=== PATIENT | male | born 1970 | race Caucasian/White ===

== ENCOUNTER 2021-02-04 15:57 | Inpatient (IN) | payer BC ==
[~2021-02-04] VITALS: Ht 182.9 cm; Wt 95.3 kg
[2021-02-04 16:43] LABS: BASO # 0.04 (0.02-0.10); EOS # 0.01 (0.04-0.40); EOS % 0.1 % (0.0-4.0); HEMATOCRIT 52.4 % (42.0-52.0); HEMOGLOBIN 17.8 g/dL (13.5-18.0); LYMPH# 0.94 (1.50-4.00); MEAN CELL VOLUME 83 fl (78-100); MEAN CORPUSCULAR HEMOGLOBIN 28 pg (27-31); MEAN CORPUSCULAR HGB CONC 34 g/dL (33-37); MEAN PLATELET VOLUME 10.1 fl (7.4-10.4); MONO # 1.01 (0.20-0.80); NEU # 16.01 (1.40-6.50); PLATELET COUNT 212 K/mm3 (130-400); RED BLOOD COUNT 6.32 M/mm3 (4.20-5.60); RED CELL DISTRIBUTION WIDTH 12.7 % (11.5-14.5); WHITE BLOOD COUNT 18.1 K/mm3 (4.8-10.8)
[2021-02-04 16:54] LABS: ALBUMIN 4.1 g/dL (3.5-5.0); POTASSIUM 4.2 mmol/L (3.5-5.1)
[2021-02-04 16:54] LABS: URINE APPEARANCE HAZY; URINE COLOR YELLOW
[2021-02-04 16:55] LABS: URINE BILIRUBIN 1+ (NEGATIVE); URINE BLOOD 50 ery/uL (NEGATIVE); URINE KETONE 3+ (NEGATIVE); URINE LEUKOCYTE ESTERASE TRACE (NEGATIVE); URINE MUCUS PRESENT (NOT PRESENT); URINE NITRATE NEGATIVE (NEGATIVE); URINE PROTEIN(semi-quant) 2+ mg/dL (NEGATIVE); URINE UROBILINOGEN NORMAL (NORMAL)
[2021-02-04 16:55] LABS: CALCIUM 10.4 mg/dL (8.3-10.5)
[2021-02-04 16:56] LABS: TOTAL PROTEIN 7.9 g/dL (6.4-8.3)
[2021-02-04 16:58] LABS: TOTAL BILIRUBIN 4.1 mg/dL (0.2-1.2)
[2021-02-04] MEDS ORDERED: SINGULAIR 110 MG/TAB PO (17:06)
[2021-02-04 19:30] VITALS: BP 176/116
--- NOTE | 2021-02-04 19:30 | NUR ---
Pt orientated. States he is comfortable, 3/10. Skin is warm and dry. No rashes or break down noted. Abd is distended but soft. Bowel sounds heard.IV in Rt hand patent. Pt's left to get pt's CPAP machine which he uses at night.
[2021-02-04 22:12] VITALS: BP 164/100
--- NOTE | 2021-02-04 23:15 | NUR ---
Pt c/o 12/20. Fentanyl 50mcg IVP given. Pt alert and orientated.
[2021-02-05 02:17] VITALS: BP 148/94
[2021-02-05 06:00] VITALS: BP 151/87
--- NOTE | 2021-02-05 06:23 | NUR ---
UPON ENTERING ROOM PT APPEARS ASLEEP, RESP EASY AND UNLABORED. PT ON CPAP. PT AWAKENS WITH VITAL SIGNS BEING TAKEN. NO C/O PAIN.
--- NOTE | 2021-02-05 07:00 | NUR ---
REPORT GIVEN TO EVANS Rose RN
[2021-02-05 07:41] LABS: BASO # 0.07 (0.02-0.10); EOS # 0.07 (0.04-0.40); EOS % 0.5 % (0.0-4.0); HEMATOCRIT 47.2 % (42.0-52.0); HEMOGLOBIN 16.1 g/dL (13.5-18.0); LYMPH# 1.05 (1.50-4.00); MEAN CELL VOLUME 84 fl (78-100); MEAN CORPUSCULAR HEMOGLOBIN 29 pg (27-31); MEAN CORPUSCULAR HGB CONC 34 g/dL (33-37); MEAN PLATELET VOLUME 11.1 fl (7.4-10.4); MONO # 1.02 (0.20-0.80); NEU # 11.26 (1.40-6.50); PLATELET COUNT 182 K/mm3 (130-400); RED BLOOD COUNT 5.62 M/mm3 (4.20-5.60); RED CELL DISTRIBUTION WIDTH 12.8 % (11.5-14.5); WHITE BLOOD COUNT 13.5 K/mm3 (4.8-10.8)
[2021-02-05 07:48] LABS: ALBUMIN 3.6 g/dL (3.5-5.0); POTASSIUM 3.6 mmol/L (3.5-5.1)
[2021-02-05 07:49] LABS: CALCIUM 9.2 mg/dL (8.3-10.5)
[2021-02-05 07:51] LABS: TOTAL PROTEIN 6.9 g/dL (6.4-8.3)
[2021-02-05 07:52] LABS: TOTAL BILIRUBIN 3.3 mg/dL (0.2-1.2)
--- NOTE | 2021-02-05 08:57 | NUR ---
Patient resting in bed. Reports pain is a 3 out of 10 on a numeric pain scale. States, "It's much better than it was." Bed in lowest and locked position. Call light within reach. IV infusion running at this time.
[2021-02-05 10:52] VITALS: BP 146/88
[2021-02-05 14:23] VITALS: BP 157/89
[2021-02-05 17:55] VITALS: BP 154/83
--- NOTE | 2021-02-05 19:10 | NUR ---
Report received from Rina MONTANO. Patient resting in bed. Drowsy but oriented x4. Rates pain to middleback and epigastric region a 10/20. States "I think I over did it today". States passing gas. Denies dysuria. IVF infusing NS at 150 ML/HR. Site patent to L hand. Would like Toradol when he can have. Denies questions, wants or needs. Call light in reach.
[2021-02-05 21:53] VITALS: BP 130/66
[2021-02-06 01:26] VITALS: BP 123/73
--- NOTE | 2021-02-06 01:40 | NUR ---
Up to BR with SBA. Voids 400 ML of dark orange/reddish colored urine. Having pain to lower back and epigastric region 01/20. Somewhat nauseous. Zofran and IV Fentanyl 50 MCG given at this time. Congested.
--- NOTE | 2021-02-06 02:57 | NUR ---
Calls and states that the pain woke him up again. "the back pain is better, it is more in the front now". Rates 09/20. Toradol 30 MG IV given at this time.
--- NOTE | 2021-02-06 05:30 | NUR ---
INFRASTRUCTURE SOLUTIONS ARCHITECT's in room to obtain vital signs. Patient sleeping with CPAP in place. No signs of distress at this time. IVF infusing NS at 150 ML/HR. VSS.
[2021-02-06 05:44] VITALS: BP 127/79
[2021-02-06 06:59] LABS: BASO # 0.07 (0.02-0.10); EOS # 0.15 (0.04-0.40); EOS % 1.7 % (0.0-4.0); HEMATOCRIT 40.4 % (42.0-52.0); HEMOGLOBIN 13.5 g/dL (13.5-18.0); LYMPH# 1.09 (1.50-4.00); MEAN CELL VOLUME 85 fl (78-100); MEAN CORPUSCULAR HEMOGLOBIN 29 pg (27-31); MEAN CORPUSCULAR HGB CONC 33 g/dL (33-37); MEAN PLATELET VOLUME 10.4 fl (7.4-10.4); MONO # 0.85 (0.20-0.80); PLATELET COUNT 179 K/mm3 (130-400); RED BLOOD COUNT 4.73 M/mm3 (4.20-5.60); RED CELL DISTRIBUTION WIDTH 12.8 % (11.5-14.5); WHITE BLOOD COUNT 8.9 K/mm3 (4.8-10.8)
[2021-02-06 07:02] LABS: ALBUMIN 2.9 g/dL (3.5-5.0)
[2021-02-06 07:03] LABS: POTASSIUM 3.6 mmol/L (3.5-5.1)
[2021-02-06 07:04] LABS: CALCIUM 8.6 mg/dL (8.3-10.5)
[2021-02-06 07:05] LABS: TOTAL PROTEIN 5.6 g/dL (6.4-8.3)
[2021-02-06 07:07] LABS: TOTAL BILIRUBIN 2.5 mg/dL (0.2-1.2)
--- NOTE | 2021-02-06 07:12 | NUR ---
Report to Sun MONTANO.
[2021-02-06 10:20] VITALS: BP 158/89
--- NOTE | 2021-02-06 11:24 | NUR ---
JC HERR APRN IN WITH PATIENT AT THIS TIME.
[2021-02-06 14:05] VITALS: BP 149/87
[2021-02-06 17:25] VITALS: BP 165/95
--- NOTE | 2021-02-06 19:00 | NUR ---
Report received from Nancy MONTANO.
--- NOTE | 2021-02-06 20:19 | NUR ---
Patient requests toradol for burning back pain and given. Reports pain decreased after med from 7 to 06/22.
[2021-02-06 21:57] VITALS: BP 154/84
--- NOTE | 2021-02-07 01:27 | NUR ---
Patient has been resting quietly in bed until this time. Reports abdominal soreness throughout 5/10 on pain scale and fentanyl 50 mcg gm given SIV.
[2021-02-07 01:40] VITALS: BP 145/83
--- NOTE | 2021-02-07 03:00 | NUR ---
Patient rests in bed with eyes closed. Respirations with ease.
[2021-02-07 05:30] VITALS: BP 143/84
--- NOTE | 2021-02-07 05:54 | NUR ---
Patient awake and up to the bathroom to void and back to bed.
[2021-02-07 09:07] LABS: BASO # 0.05 (0.02-0.10); EOS # 0.06 (0.04-0.40); EOS % 0.6 % (0.0-4.0); HEMATOCRIT 39.9 % (42.0-52.0); HEMOGLOBIN 13.7 g/dL (13.5-18.0); LYMPH# 0.91 (1.50-4.00); MEAN CELL VOLUME 82 fl (78-100); MEAN CORPUSCULAR HEMOGLOBIN 28 pg (27-31); MEAN CORPUSCULAR HGB CONC 34 g/dL (33-37); MEAN PLATELET VOLUME 10.5 fl (7.4-10.4); MONO # 0.86 (0.20-0.80); NEU # 7.91 (1.40-6.50); PLATELET COUNT 190 K/mm3 (130-400); RED BLOOD COUNT 4.84 M/mm3 (4.20-5.60); RED CELL DISTRIBUTION WIDTH 12.6 % (11.5-14.5); WHITE BLOOD COUNT 9.8 K/mm3 (4.8-10.8)
[2021-02-07 09:12] LABS: ALBUMIN 3.1 g/dL (3.5-5.0); POTASSIUM 3.6 mmol/L (3.5-5.1)
[2021-02-07 09:13] LABS: CALCIUM 8.9 mg/dL (8.3-10.5)
[2021-02-07 09:15] LABS: TOTAL PROTEIN 6.2 g/dL (6.4-8.3)
[2021-02-07 09:17] LABS: TOTAL BILIRUBIN 2.3 mg/dL (0.2-1.2)
[2021-02-07 09:20] VITALS: BP 158/93
[2021-02-07 14:15] VITALS: BP 154/90
[2021-02-07 17:20] VITALS: BP 159/86
[2021-02-07] MEDS ORDERED: MAGNESIUM400 M1 PO (18:26)
[2021-02-07] MEDS ORDERED: [UNRECOGNIZED DRUG - OTHER] PO (18:31)
[2021-02-07] MEDS ORDERED: VITAMIN K2100 MCG PO (18:31)
[2021-02-07] MEDS ORDERED: VITAMIN D350 MCG PO (18:35)
[2021-02-07] MEDS ORDERED: MULTI-VITAMIN1 EACH PO (18:35)
[2021-02-07] MEDS ORDERED: ACTIVE-Q200 MG PO (18:37)
[2021-02-07] MEDS ORDERED: ALLEGRA ALLERGY60 MG PO (18:38)
[2021-02-07] MEDS ORDERED: PROBIOTIC1 EACH PO (18:38)
[2021-02-07] MEDS ORDERED: ZINC50 M4 PO (18:39)
[2021-02-07] MEDS ORDERED: LEADER C 250 MG1 TAB PO (18:39)
--- NOTE | 2021-02-07 19:00 | NUR ---
Report received from Nancy MONTANO.
--- NOTE | 2021-02-07 21:00 | NUR ---
Patient rests in bed. Reports pain controlled at this time and rates abdomin and back soreness 2/10. Denies need for pain med. States not passing gas this evening but did this morning. Bowel sounds are active x 4, abdomin distended but soft.
[2021-02-07 22:00] VITALS: BP 150/85
[2021-02-08] VITALS (7 sets, daily range): BP systolic 112–155; BP diastolic 74–105
--- NOTE | 2021-02-08 06:35 | NUR ---
Patient has been resting with eyes closed. Up to the bathroom frequently to void during the night then rests back in bed.
--- NOTE | 2021-02-08 06:41 | NUR ---
Patient reports he rested better this noc.
[2021-02-08 07:20] LABS: BASO # 0.04 (0.02-0.10); EOS # 0.07 (0.04-0.40); EOS % 0.6 % (0.0-4.0); HEMATOCRIT 42.2 % (42.0-52.0); LYMPH# 1.06 (1.50-4.00); MEAN CELL VOLUME 81 fl (78-100); MEAN CORPUSCULAR HEMOGLOBIN 29 pg (27-31); MEAN CORPUSCULAR HGB CONC 36 g/dL (33-37); MEAN PLATELET VOLUME 10.5 fl (7.4-10.4); MONO # 0.99 (0.20-0.80); PLATELET COUNT 209 K/mm3 (130-400); RED BLOOD COUNT 5.19 M/mm3 (4.20-5.60); RED CELL DISTRIBUTION WIDTH 12.5 % (11.5-14.5); WHITE BLOOD COUNT 11.2 K/mm3 (4.8-10.8)
[2021-02-08 08:59] LABS: POTASSIUM 3.4 mmol/L (3.5-5.1)
[2021-02-08 09:00] LABS: CALCIUM 9.2 mg/dL (8.3-10.5)
[2021-02-08 09:38] LABS: ALBUMIN 3.2 g/dL (3.5-5.0)
[2021-02-08 09:41] LABS: TOTAL PROTEIN 6.4 g/dL (6.4-8.3)
[2021-02-08 09:43] LABS: TOTAL BILIRUBIN 2.1 mg/dL (0.2-1.2)
--- NOTE | 2021-02-08 19:30 | NUR ---
Report received from Sun MONTANO. Patient resting in recliner. States he just got back and that he had a BM. Noted Medium loose brown BM in toilet along with 450 of orange colored urine. Denies pain or nausea, Some tenderness with palpation to upper quads of abdomen but states "it's nothing like before" and that he is feeling "much better" now that his bowels have moved. Tolerating a clear liquid diet well. Assessment completed. CPAP water resevoir filled. Denies further wants or needs at this time.
--- NOTE | 2021-02-09 01:02 | NUR ---
New bag of IVF hung, NS to run at 75 ML/HR. Site patent. Patient sleeping with CPAP in place. No signs of pain or distress.
[2021-02-09 01:11] VITALS: BP 127/79
--- NOTE | 2021-02-09 04:34 | NUR ---
Awake up to BR, voids 450 ML of orange colored urine. Passing gas, no further BM. Denies pain. States stomach sore from coughing but no pain like before. States he has rested well.
[2021-02-09 05:35] VITALS: BP 132/94
--- NOTE | 2021-02-09 06:22 | NUR ---
Continues to rest well without pain. IVF continue at 75 ML/HR. CPAP in place.
[2021-02-09 06:42] LABS: BASO # 0.06 (0.02-0.10); EOS # 0.07 (0.04-0.40); EOS % 0.7 % (0.0-4.0); HEMATOCRIT 45.2 % (42.0-52.0); HEMOGLOBIN 15.5 g/dL (13.5-18.0); LYMPH# 0.92 (1.50-4.00); MEAN CELL VOLUME 82 fl (78-100); MEAN CORPUSCULAR HEMOGLOBIN 28 pg (27-31); MEAN CORPUSCULAR HGB CONC 34 g/dL (33-37); MEAN PLATELET VOLUME 10.6 fl (7.4-10.4); MONO # 0.96 (0.20-0.80); NEU # 8.11 (1.40-6.50); PLATELET COUNT 238 K/mm3 (130-400); RED BLOOD COUNT 5.49 M/mm3 (4.20-5.60); RED CELL DISTRIBUTION WIDTH 12.5 % (11.5-14.5); WHITE BLOOD COUNT 10.2 K/mm3 (4.8-10.8)
[2021-02-09 06:57] LABS: ALBUMIN 3.1 g/dL (3.5-5.0)
[2021-02-09 06:58] LABS: POTASSIUM 3.5 mmol/L (3.5-5.1)
[2021-02-09 06:59] LABS: CALCIUM 9.2 mg/dL (8.3-10.5)
[2021-02-09 07:00] LABS: TOTAL PROTEIN 6.4 g/dL (6.4-8.3)
[2021-02-09 07:02] LABS: TOTAL BILIRUBIN 1.8 mg/dL (0.2-1.2)
--- NOTE | 2021-02-09 07:07 | NUR ---
Report to Sun MONTANO.
--- NOTE | 2021-02-09 08:00 | NUR ---
PATIENT LYING IN BED. IN ROOM. PATIENT REPORTS FEELING BETTER THIS MORNING. PATIENT'S COLOR IMPROVED. NO JAUNDICE NOTED. PATIENT'S SCLERA WHITE. REPORTS NIGHT WENT WELL. DID NOT REQUIRE ANY PAIN MEDICATIONS. PATIENT REPORTS PAIN 1/10 IN BACK. REPORTS THAT WHEN LAYING FLAT ON BACK HAS SOME DISCOMFORT IN ABDOMEN BUT IS MOSTLY RESOLVED WHEN ON ON SIDE. PATIENT'S BOWELS MOVING. BOWEL SOUNDS AUDIBLE IN ALL QUADRANTS. ABD LESS DISTENDED THIS MORNING. SOFT UPON PALPATION. PATIENT REPORTS THAT HE IS CONTINUING TO HAVE COUGH ESPECIALLY AT NIGHT DUE TO DRAINAGE FROM SINUSES. DENIES SHORTNESS OF BREATH OR DIFFICULTIES BREATHING. STATES "IN FACT I FEEL LIKE THIS MORNING IS THE FIRST TIME I FEEL LIKE I CAN TAKE A FULL BIG DEEEP BREATH IN WITHOUT ANY DISCOMFORT. PATIENT'S CALL LUCA FRANCO.
[2021-02-09 10:39] VITALS: BP 128/86
[2021-02-09 14:29] VITALS: BP 125/87
[2021-02-09 17:20] VITALS: BP 143/94
--- NOTE | 2021-02-09 19:09 | NUR ---
Report received from Sun MONTANO. Patient sitting up in recliner. IVF infusing NS at 75 ML/HR. Site patent to L hand. Denies pain. States he has had a "good day" and feeling better. Feels "full, but a good full". Passing gas and having BM's. Has ambulated in halls today, feels wore out. Assessment completed. COMPOSING MACHINE OPERATOR/TENDER in to assist with I.S. Lovenox injection given. CPAP water reservoir filled. Denies further wants or needs. Up ad-belen in room.
[2021-02-09 22:31] VITALS: BP 139/94
--- NOTE | 2021-02-10 00:02 | NUR ---
Rests with eyes closed. CPAP in place. No signs of pain or distress.
[2021-02-10 02:01] VITALS: BP 137/82
--- NOTE | 2021-02-10 02:51 | NUR ---
No pain just complains of a bothersome cough. Cough gtts and hot tea with lemon provided.
--- NOTE | 2021-02-10 05:50 | NUR ---
Resting with CPAP on. No pain. AM vital signs and weight obtained.
[2021-02-10 06:17] VITALS: BP 137/89
--- NOTE | 2021-02-10 06:57 | NUR ---
Report to Rina MONTANO.
[2021-02-10 07:24] LABS: BASO # 0.07 (0.02-0.10); EOS # 0.12 (0.04-0.40); EOS % 1.3 % (0.0-4.0); HEMOGLOBIN 14.8 g/dL (13.5-18.0); LYMPH# 1.13 (1.50-4.00); MEAN CELL VOLUME 82 fl (78-100); MEAN CORPUSCULAR HEMOGLOBIN 28 pg (27-31); MEAN CORPUSCULAR HGB CONC 34 g/dL (33-37); MEAN PLATELET VOLUME 10.3 fl (7.4-10.4); MONO # 0.85 (0.20-0.80); NEU # 6.78 (1.40-6.50); PLATELET COUNT 253 K/mm3 (130-400); RED BLOOD COUNT 5.22 M/mm3 (4.20-5.60); RED CELL DISTRIBUTION WIDTH 12.6 % (11.5-14.5); WHITE BLOOD COUNT 9.1 K/mm3 (4.8-10.8)
[2021-02-10 07:39] LABS: ALBUMIN 3.1 g/dL (3.5-5.0); POTASSIUM 3.5 mmol/L (3.5-5.1)
[2021-02-10 07:41] LABS: TOTAL PROTEIN 6.1 g/dL (6.4-8.3)
[2021-02-10 07:43] LABS: TOTAL BILIRUBIN 1.1 mg/dL (0.2-1.2)
--- NOTE | 2021-02-10 09:09 | NUR ---
Patient in chair visiting with and eating breakfast. A&Ox4, no c/o pain or discomfort. Excited about diet and able to eat solid foods. Reports he didn't sleep well last night d/t allergies. Medications given as directed. Orders given, patient may move around room ad belen. Call light within reach.
[2021-02-10 10:20] VITALS: BP 119/77
[2021-02-10] MEDS ORDERED: LISINOPRIL10 MG PO (10:56)
[2021-02-10] MEDS ORDERED: TESSALON PERLE100 M1 PO (10:58)
--- NOTE | 2021-02-10 12:31 | NUR ---
Patient discharged home by w/c accompanied by and ROTARY KILN OPERATOR. All personal belongings sent with patient. A&Ox4, no c/o pain or discomfort. Discharge education given and reviewed by this nurse. Questions and concerns addressed at this time. Patient met with loading dock helper. Orders to treat outpatient for dietary needs was copied and given to loading dock helper and put in chart. Order given to patient to seek tx outpatient.
== END 2021-02-10 12:35 | disposition home or self-care (01) | DRG 440 ==
LOC: ED 15:57 → MED/SURG 18:52
PROVIDERS: Nurse Practitioner; Nurse Practitioner Family; ADMIT Physician Assistant
DX: K85.90 Acute pancreatitis without necrosis or infection, unspecified (principal); E11.9 Type 2 diabetes mellitus without complications; I10 Essential (primary) hypertension; Z20.822 Contact with and (suspected) exposure to COVID-19; Z88.8 Allergy status to other drugs, medicaments and biological substances
CPT/HCPCS: C9113; J1650; J1885; J2405; J3010; J7030; J7070; Q9967

== ENCOUNTER → 2021-03-03 | Outpatient (CLI) | payer BC ==
[~2021-03-03] MED LIST: ACTIVE-Q200 MG PO; ALLEGRA ALLERGY60 MG PO; LEADER C 250 MG1 TAB PO; LISINOPRIL10 MG PO; MAGNESIUM400 M1 PO; MULTI-VITAMIN1 EACH PO; PROBIOTIC1 EACH PO; SINGULAIR 110 MG/TAB PO; TESSALON PERLE100 M1 PO; VITAMIN D350 MCG PO; VITAMIN K2100 MCG PO; ZINC50 M4 PO; [UNRECOGNIZED DRUG - OTHER] PO
[2021-03-03 09:26] LABS: BASO # 0.04 (0.02-0.10); EOS # 0.17 (0.04-0.40); EOS % 3.4 % (0.0-4.0); HEMATOCRIT 46.5 % (42.0-52.0); HEMOGLOBIN 15.8 g/dL (13.5-18.0); LYMPH# 1.28 (1.50-4.00); MEAN CELL VOLUME 82 fl (78-100); MEAN CORPUSCULAR HEMOGLOBIN 28 pg (27-31); MEAN CORPUSCULAR HGB CONC 34 g/dL (33-37); MEAN PLATELET VOLUME 10.5 fl (7.4-10.4); MONO # 0.45 (0.20-0.80); NEU # 3.03 (1.40-6.50); PLATELET COUNT 187 K/mm3 (130-400); RED BLOOD COUNT 5.64 M/mm3 (4.20-5.60); RED CELL DISTRIBUTION WIDTH 12.8 % (11.5-14.5)
[2021-03-03 09:47] LABS: ALBUMIN 4.1 g/dL (3.5-5.0); POTASSIUM 4.1 mmol/L (3.5-5.1)
[2021-03-03 09:48] LABS: CALCIUM 9.5 mg/dL (8.3-10.5)
[2021-03-03 09:50] LABS: TOTAL PROTEIN 7.1 g/dL (6.4-8.3)
[2021-03-03 09:51] LABS: TOTAL BILIRUBIN 1.2 mg/dL (0.2-1.2)
== END ==
LOC: LAB 09:07
PROVIDERS: Physician Assistant
DX: K90.9 Intestinal malabsorption, unspecified (principal)

== ENCOUNTER → 2021-05-26 | Outpatient (CLI) | payer BC ==
[2021-05-26 10:48] LABS: BASO # 0.07 K/mm3 (0.02-0.10); EOS # 0.12 K/mm3 (0.04-0.40); EOS % 1.4 % (0.0-4.0); HEMATOCRIT 50.8 % (42.0-52.0); HEMOGLOBIN 17.2 g/dL (13.5-18.0); LYMPH# 1.62 K/mm3 (1.50-4.00); MEAN CELL VOLUME 83 fl (78-100); MEAN CORPUSCULAR HEMOGLOBIN 28 pg (27-31); MEAN CORPUSCULAR HGB CONC 34 g/dL (33-37); MONO # 0.62 K/mm3 (0.20-0.80); NEU # 6.44 K/mm3 (1.40-6.50); PLATELET COUNT 205 K/mm3 (130-400); RED CELL DISTRIBUTION WIDTH 12.5 % (11.5-14.5); WHITE BLOOD COUNT 8.9 K/mm3 (4.8-10.8)
[2021-05-26 10:56] LABS: ALBUMIN 4.4 g/dL (3.5-5.0); POTASSIUM 4.2 mmol/L (3.5-5.1)
[2021-05-26 10:57] LABS: CALCIUM 9.4 mg/dL (8.3-10.5)
[2021-05-26 10:59] LABS: TOTAL PROTEIN 7.4 g/dL (6.4-8.3)
[2021-05-26 11:00] LABS: TOTAL BILIRUBIN 1.5 mg/dL (0.2-1.2)
[2021-05-26 11:08] LABS: URINE APPEARANCE CLEAR; URINE BILIRUBIN NEGATIVE (NEGATIVE); URINE BLOOD NEGATIVE (NEGATIVE); URINE COLOR YELLOW; URINE GLUCOSE NEGATIVE (NEGATIVE); URINE KETONE NEGATIVE (NEGATIVE); URINE LEUKOCYTE ESTERASE NEGATIVE (NEGATIVE); URINE NITRATE NEGATIVE (NEGATIVE); URINE PROTEIN(semi-quant) TRACE mg/dL (NEGATIVE); URINE UROBILINOGEN NORMAL (NORMAL); URINE WBC 0-1 /hpf (0-3)
[2021-05-26 11:46] LABS: ERYTHROCYTE SEDIMENTATION RATE 6 mm/hr (0-20)
[2021-05-26 23:24] LABS: CREATININE OTHER SOURCE 55 mg/dL (())
== END ==
LOC: LAB 10:29
PROVIDERS: Family Medicine
DX: Z12.5 Encounter for screening for malignant neoplasm of prostate (principal); E78.2 Mixed hyperlipidemia; E11.9 Type 2 diabetes mellitus without complications

== ENCOUNTER → 2021-08-25 | Outpatient (CLI) | payer BC ==
[2021-08-25 10:59] LABS: BASO # 0.05 K/mm3 (0.02-0.10); EOS % 2.2 % (0.0-4.0); HEMATOCRIT 49.2 % (42.0-52.0); HEMOGLOBIN 16.6 g/dL (13.5-18.0); LYMPH# 1.17 K/mm3 (1.50-4.00); MEAN CELL VOLUME 82 fl (78-100); MEAN CORPUSCULAR HEMOGLOBIN 28 pg (27-31); MEAN CORPUSCULAR HGB CONC 34 g/dL (33-37); MEAN PLATELET VOLUME 10.1 fl (7.4-10.4); MONO # 0.37 K/mm3 (0.20-0.80); NEU # 2.93 K/mm3 (1.40-6.50); PLATELET COUNT 216 K/mm3 (130-400); RED BLOOD COUNT 5.97 M/mm3 (4.20-5.60); RED CELL DISTRIBUTION WIDTH 13.4 % (11.5-14.5); WHITE BLOOD COUNT 4.6 K/mm3 (4.8-10.8)
[2021-08-25 11:25] LABS: ALBUMIN 4.3 g/dL (3.5-5.0); POTASSIUM 4.2 mmol/L (3.5-5.1)
[2021-08-25 11:27] LABS: CALCIUM 9.4 mg/dL (8.3-10.5)
[2021-08-25 11:28] LABS: TOTAL PROTEIN 7.4 g/dL (6.4-8.3)
[2021-08-25 11:30] LABS: TOTAL BILIRUBIN 1.1 mg/dL (0.2-1.2)
[2021-08-25 22:56] LABS: TESTOSTERONE 641 ng/dL (221-716)
== END ==
LOC: LAB 10:39
PROVIDERS: Internal Medicine
DX: Z12.5 Encounter for screening for malignant neoplasm of prostate (principal); I10 Essential (primary) hypertension; K85.90 Acute pancreatitis without necrosis or infection, unspecified; E11.9 Type 2 diabetes mellitus without complications; K76.0 Fatty (change of) liver, not elsewhere classified; E78.2 Mixed hyperlipidemia; K90.9 Intestinal malabsorption, unspecified

== ENCOUNTER → 2021-12-02 | Outpatient (CLI) | payer BC ==
[2021-12-02 10:19] LABS: POTASSIUM 3.8 mmol/L (3.5-5.1)
[2021-12-02 10:20] LABS: ALBUMIN 4.4 g/dL (3.5-5.0)
[2021-12-02 10:21] LABS: CALCIUM 9.2 mg/dL (8.3-10.5)
[2021-12-02 10:22] LABS: TOTAL PROTEIN 7.1 g/dL (6.4-8.3)
[2021-12-02 10:24] LABS: TOTAL BILIRUBIN 1.5 mg/dL (0.2-1.2)
== END ==
LOC: LAB 09:51
PROVIDERS: Internal Medicine
DX: E11.9 Type 2 diabetes mellitus without complications (principal); E78.2 Mixed hyperlipidemia

== ENCOUNTER → 2023-10-10 | Outpatient (CLI) | payer BC ==
[2023-10-10 08:26] LABS: URINE WBC 0 /hpf (0-3)
[2023-10-10 08:34] LABS: BASO # 0.05 K/mm3 (0.02-0.10); EOS # 0.17 K/mm3 (0.04-0.40); EOS % 2.6 % (0.0-4.0); HEMATOCRIT 50.8 % (42.0-52.0); HEMOGLOBIN 16.9 g/dL (13.5-18.0); LYMPH# 1.77 K/mm3 (1.50-4.00); MEAN CELL VOLUME 85 fl (78-100); MEAN CORPUSCULAR HEMOGLOBIN 28 pg (27-31); MEAN CORPUSCULAR HGB CONC 33 g/dL (33-37); MEAN PLATELET VOLUME 9.9 fl (7.4-10.4); MONO # 0.43 K/mm3 (0.20-0.80); NEU # 3.98 K/mm3 (1.40-6.50); PLATELET COUNT 179 K/mm3 (130-400); RED CELL DISTRIBUTION WIDTH 12.8 % (11.5-14.5); WHITE BLOOD COUNT 6.4 K/mm3 (4.8-10.8)
[2023-10-10 08:42] LABS: ALBUMIN 4.2 g/dL (3.5-5.0)
[2023-10-10 08:43] LABS: CALCIUM 9.3 mg/dL (8.3-10.5)
[2023-10-10 08:46] LABS: TOTAL BILIRUBIN 1.2 mg/dL (0.2-1.2)
[2023-10-10 08:51] LABS: MAGNESIUM 2.03 mg/dL (1.60-2.60)
[2023-10-10 09:07] LABS: URINE APPEARANCE CLEAR (CLEAR); URINE BILIRUBIN NEGATIVE (NEGATIVE); URINE COLOR YELLOW (YELLOW); URINE GLUCOSE NEGATIVE (NEGATIVE); URINE KETONE NEGATIVE (NEGATIVE); URINE PROTEIN(semi-quant) NEGATIVE (NEGATIVE)
[2023-10-10 09:08] LABS: URINE BLOOD NEGATIVE (NEGATIVE); URINE LEUKOCYTE ESTERASE NEGATIVE (NEGATIVE); URINE MUCUS PRESENT (NOT PRESENT); URINE NITRATE NEGATIVE (NEGATIVE)
[2023-10-10 22:57] LABS: CREATININE OTHER SOURCE 119 mg/dL (47-110)
== END ==
LOC: LAB 08:12
PROVIDERS: Internal Medicine
DX: Z00.00 Encounter for general adult medical examination without abnormal findings (principal); Z12.5 Encounter for screening for malignant neoplasm of prostate; Z12.11 Encounter for screening for malignant neoplasm of colon

== ENCOUNTER → 2023-10-12 | Outpatient (CLI) | payer BC | LOC: LAB 15:04 | DX: Z00.00 Encounter for general adult medical examination without abnormal findings (principal); Z12.5 Encounter for screening for malignant neoplasm of prostate; Z12.11 Encounter for screening for malignant neoplasm of colon ==

== ENCOUNTER → 2024-04-10 | Outpatient (CLI) | payer BC ==
[2024-04-10 08:39] LABS: BASO # 0.04 K/mm3 (0.02-0.10); EOS # 0.13 K/mm3 (0.04-0.40); EOS % 1.8 % (0.0-4.0); HEMATOCRIT 47.5 % (42.0-52.0); HEMOGLOBIN 16.2 g/dL (13.5-18.0); MEAN CELL VOLUME 86 fl (78-100); MEAN CORPUSCULAR HEMOGLOBIN 29 pg (27-31); MEAN CORPUSCULAR HGB CONC 34 g/dL (33-37); MEAN PLATELET VOLUME 9.8 fl (7.4-10.4); MONO # 0.53 K/mm3 (0.20-0.80); NEU # 5.22 K/mm3 (1.40-6.50); PLATELET COUNT 183 K/mm3 (130-400); RED BLOOD COUNT 5.55 M/mm3 (4.20-5.60); RED CELL DISTRIBUTION WIDTH 12.5 % (11.5-14.5); WHITE BLOOD COUNT 7.3 K/mm3 (4.8-10.8)
[2024-04-10 08:47] LABS: ALBUMIN 4.2 g/dL (3.5-5.0)
[2024-04-10 08:48] LABS: CALCIUM 9.1 mg/dL (8.3-10.5)
[2024-04-10 08:51] LABS: TOTAL BILIRUBIN 1.6 mg/dL (0.2-1.2)
[2024-04-10 08:56] LABS: MAGNESIUM 2.11 mg/dL (1.60-2.60)
== END ==
LOC: LAB 08:18
PROVIDERS: Internal Medicine
DX: I10 Essential (primary) hypertension (principal); E11.9 Type 2 diabetes mellitus without complications; E78.2 Mixed hyperlipidemia